=== PATIENT | male | born 1985 | race Caucasian/White ===

== ENCOUNTER → 2017-06-04 | Outpatient (CLI) | payer MEDICAID ==
[~2017-06-04] MED LIST: ETODOLAC400 MG PO; FLEXERIL10 MG PO; GABAPENTIN300 MG PO; KEFLEX 500MG.500 MG PO; NOMEDS *; TRAMADOL 50MG T50 MG PO; TRILEPTAL600 MG PO
--- NOTE | 2017-06-04 18:52 | RADIOLOGY REPORT PS360 ---
CT ABD PELVIS W/ CONTRAST HISTORY: ABDOMINAL pain. Mostly left-sided pain Patient Age: 31 years: Male Ordering Physician: Richard Tian MD TECHNIQUE:. helical CT scanning performed at of pelvis with sagittal and coronal reconstructions on CT workstation. Sagittal coronal reconstructions on CT workstation. COMPARISON :No previous relevant studies FINDINGS Lung bases are clear. Suspect Hiatal hernia or mild GE reflux Liver. No significant findings. There are some scattered calcifications at liver reflecting old granulomatous disease. This includes small Calcification is adjacent to the gallbladder fossa at the margin of liver.. Gallbladder. No gallstones evident, duct normal. Spleen unremarkable. Pancreas appears satisfactory. Adrenals unremarkable. Kidneys satisfactory. No retroperitoneal adenopathy. There is generous stool seen throughout the colon may reflect mild constipation. Small bowel unremarkable no bowel dilatation or obstruction. Terminal ileum satisfactory. Generally fluid-filled appendix with the minimal air in the appendix. The appendix become slightly more plump towards its tip at midline, where it is in this upper normal diameter with upper normal wall thickness.. Understand patient left-sided pain in this doubt this is of significance currently. However If RLQ pain developed this may warrant further investigation. I believe it is a within normal limits appendix Pelvis. No pelvic adenopathy or mass. Suspect developing left inguinal hernia. Bulging of fat along the inguinal canal seen here. No bowel. Postsurgical changes right groin noted. Requires correlation o . moderate size nodes at right groin more so than left. Mild dextro curvature of the lumbar spine. IMPRESSION:------- , No acute findings abdomen pelvis. Modest Fat-containing left inguinal hernia incidentally noted. Is patient tender here at the left groin? Otherwise No significant findings in the left abdomen patient's pain Generous stool throughout the large bowel, which may reflect mild constipation, most evident towards right colon . The appendix is upper normal caliber at its tip at midline-but most likely within normal limits. However if The patient developed RLQ pain or midline pain, this may warrant follow-up
== END ==
LOC: RAD 09:27
DX: R10.9 Unspecified abdominal pain (principal)
CPT/HCPCS: Q9967

== ENCOUNTER → 2017-06-21 | Outpatient (CLI) | payer MEDICAID ==
[2017-06-21 10:18] LABS: BUN 7 mg/dL (7-18); HEMOGLOBIN 14.5 g/dL (14.1-18.0); LYMPH # 1.4 K/mm3 (0.7-4.5); LYMPH % 23.3 % (10-50)
[2017-06-21 10:20] LABS: GFR (ESTIMATED) 113 ML/MIN (>60)
--- NOTE | 2017-06-21 14:07 | RADIOLOGY REPORT PS360 ---
US RUQ-(ABD LTD)1ORGAN/QUAD/FU HISTORY: Epigastric pain, right upper quadrant pain, nausea and vomiting postprandial RUQ PAIN ORDERING PHYSICIAN: SANDEEP LEE MD PATIENT AGE: 31 years COMPARISON: None FINDINGS: PANCREAS:Unremarkable. No obvious mass or abnormal fluid collection. No ductal dilatation LIVER:No focal liver lesions demonstrated. Homogeneous echogenicity. No intrahepatic biliary ductal dilatation evident RIGHT KIDNEY:Unremarkable. Normal size and echogenicity. No hydronephrosis GALLBLADDER:No gallstones, gallbladder wall thickening, pericholecystic fluid, or biliary dilatation. IMPRESSION: Negative right upper quadrant ultrasound
== END ==
LOC: RAD 06-20 08:30
PROVIDERS: Surgery
DX: R11.2 Nausea with vomiting, unspecified (principal)